=== PATIENT | male | born 1965 | race Caucasian/White ===

== ENCOUNTER 2018-07-30 08:58 | Inpatient (IN) | payer SELFPAY ==
[2018-07-30 12:09] VITALS: BMI 33.9
--- NOTE | 2018-07-30 12:59 | HP ---
COWS - Scale Resting Pulse: 0= SC 80 or Below Sweatin= Chills/Flushing Restless Observation: 1= Difficult to Sit Still Pupil Size: 1= Pupils >than Normal Bone or Joint Aches: 2= Severe Diffuse Aches Runny Nose/ Eye Tearin= Runny Nose/Eyes GI Upset > 30mins: 0= None Tremor Observation: 1= Tremor [place], Not Seen Yawning Observation: 2= >3x During Session Anxiety or Irritability: 2=Irritable/Anxious Goose Flesh Skin: 0=Smooth Skin COWS Score: 12 CIWA Score - Admission Criteria [facility]ASAS Guidelines: Admission for Medically Managed Detox: Requires at least one of the followin. CIWA greater than 12 2. Seizures within the past 24 hours 3. Delirium tremens within the past 24 hours 4. Hallucinations within the past 24 hours 5. Acute intervention needed for co occurring medical disorder 6. Acute intervention needed for co occurring psychiatric disorder 7. Severe withdrawal that cannot be handled at a lower level of care (continued vomiting, continued diarrhea, abnormal vital signs) requiring intravenous medication and/or fluids 8. Admission ROS [facility] - [facility] Chief Complaint: opioid withdrawal symptoms Allergies/Adverse Reactions: Allergies Allergy/AdvReac Type Severity Reaction Status Date / Time No Known Allergies Allergy Verified 07/30/18 12:01 History of Present Illness: 53 yo male with hx of heroin, cocaine and marijuana dependence is here seeking inpatient detox d/t withdrawal symptoms, reports first time seeking treatment. PMHX: denies Psych: denies Denies hx of seizures, blackouts or overdose Exam Limitations: No Limitations - Ebola screening Have you traveled outside of the country in the last 21 days: No (N) Have you had contact with anyone from an Ebola affected area: No Do you have a fever: No - Review of Systems Constitutional: Chills EENT: reports: No Symptoms Reported Respiratory: reports: No Symptoms reported Cardiac: reports: No Symptoms Reported GI: reports: Constipated (last BM 07/27/18), Poor Fluid Intake : reports: No Symptoms Reported Musculoskeletal: reports: Back Pain, Joint Pain Integumentary: reports: Pruritus Neuro: reports: Headache, Tingling (feet) Endocrine: reports: Increased Thirst Hematology: reports: No Symptoms Reported Psychiatric: reports: Orientated x3, Anxious Other Systems: Reviewed and Negative Patient History - Patient Medical History Hx Anemia: No Hx Asthma: No Hx Chronic Obstructive Pulmonary Disease (COPD): No Hx Cancer: No Hx Cardiac Disorders: No Hx Congestive Heart Failure: No Hx Hypertension: No Hx Hypercholesterolemia: No Hx Pacemaker: No HX Cerebrovascular Accident: No Hx Seizures: No Hx Dementia: No Hx Diabetes: No Hx Gastrointestinal Disorders: No Hx Liver Disease: No Hx Genitourinary Disorders: No Hx Sexually Transmitted Disorders: No Hx Renal Disease (ESRD): No Hx Thyroid Disease: No Hx Human Immunodeficiency Virus (HIV): No Hx Hepatitis C: No Hx Depression: No Hx Suicide Attempt: No Hx Bipolar Disorder: No Hx Schizophrenia: No - Patient Surgical History Past Surgical History: Yes Other Surgical History: right wrist fusion 2009 Anesthesia Reaction: No - PPD History Previous Implant?: No Documented Results: Negative w/o proof PPD to be Administered?: Yes - Smoking Cessation Smoking history: Current every day smoker Have you smoked in the past 12 months: Yes Aproximately how many cigarettes per day: 20 Hx Chewing Tobacco Use: No Initiated information on smoking cessation: Yes 'Breaking Loose' booklet given: 07/30/18 - Substance & Tx. History Hx Alcohol Use: No Hx Substance Use: Yes Substance Use Type: Cocaine, Heroin, Marijuana Hx Substance Use Treatment: No - Substances abused Heroin Substance route: Inhalation Frequency: Daily Amount used: 2 bundles/day Age of first use: 35 Date of last use: 07/30/18 Cocaine Substance route: Smoking Frequency: Daily Amount used: 1/2 Age of first use: 16 Date of last use: 07/29/18 Marijuana/Hashish Substance route: Smoking Frequency: 1-3 times last 30 days Amount used: 1-2 grams per month Age of first use: 12 Date of last use: 07/29/18 Family Disease History - Family Disease History Family History: Denies Admission Physical Exam BHS - Vital Signs Vital Signs: Vital Signs - 24 hr 07/30/18 07/30/18 12:03 12:53 Temperature 97.9 F 97.9 F Pulse Rate 73 73 Respiratory 18 18 Rate Blood Pressure 140/79 140/79 - Physical General Appearance: Yes: Appropriately Dressed, Obese, Anxious HEENTM: Yes: EOMI, Hearing grossly Normal, Normal ENT Inspection, Normocephalic , Normal Voice, FOREIGN, Pharynx Normal, Tm's normal, Other (rhinorrhea) Respiratory: Yes: Chest Non-Tender, Lungs Clear, No Respiratory Distress, No Accessory Muscle Use, Rhonchi (left lower lobe) Neck: Yes: Within Normal Limits Breast: Yes: Breast Exam Deferred Cardiology: Yes: Regular Rhythm, Regular Rate Abdominal: Yes: Normal Bowel Sounds, Non Tender, Flat Genitourinary: Yes: Within Normal Limits Back: Yes: Normal Inspection Musculoskeletal: Yes: full range of Motion, Gait Steady, Pelvis Stable, Back pain Extremities: Yes: Normal Capillary Refill, Normal Inspection, Normal Range of Motion, Non-Tender Neurological: Yes: aircraft skin burnisher II-XII NML intact, Fully Oriented, Alert, Motor Strength 5/5, Depressed Affect Integumentary: Yes: Normal Color, Warm, Diaphoresis Lymphatic: Yes: Within Normal Limits - Diagnostic (1) Opioid dependence with withdrawal Current Visit: Yes Status: Acute (2) Nicotine dependence Current Visit: Yes Status: Acute (3) Cocaine dependence Current Visit: Yes Status: Acute Qualifiers: Substance use status: uncomplicated Qualified Code(s): F14.20 - Cocaine dependence, uncomplicated (4) Marijuana abuse Current Visit: Yes Status: Acute (5) Obese Current Visit: Yes Status: Chronic Cleared for Admission [facility] - Detox or Rehab [facility] Level of Care: Medically Managed Detox Regimen/Protocol: Methadone Breathalyzer - Breathalyzer Breathalyzer: 0 Urine Drug Screen - Test Device Lot number: [id number] Expiration date: 04/15/20 - Control Is test valid?: Yes - Results Drug screen NEGATIVE: No Urine drug screen results: THC-Marijuana, NABEEL-Cocaine, FEN-Fentanyl, MOP-Opiates Inpatient Rehab Admission - Rehab Decision to Admit Inpatient rehab admission?: No
[2018-07-30] MEDS ORDERED: METHOCARBAMOL 500 MG TABLET PO PRN (13:11)
[2018-07-30] MEDS ORDERED: MAG HYDROX/AL HYDROX/SIMETH 30 ML UNIT-DOSE CUP PO PRN (13:11)
[2018-07-30] MEDS ORDERED: MAGNESIUM HYDROX 2400MG/30ML ORAL SUSPENSION 30 ML CUP PO PRN (13:11)
[2018-07-30] MEDS ORDERED: IBUPROFEN 400 MG TABLET (FP) PO PRN (13:11)
[2018-07-30] MEDS ORDERED: MENTHOL/PHENOL 1 EACH UD MM PRN (13:11)
[2018-07-30] MEDS ORDERED: NICOTINE POLACRILEX 2 MG GUM BUC PRN (13:11)
[2018-07-30] MEDS ORDERED: BISMUTH SUBSALICYLATE 262 MG/15 ML BTL PO PRN (13:11)
[2018-07-30] MEDS ORDERED: ACETAMINOPHEN 325 MG TABLET (FP) PO PRN ×2 (13:11)
[2018-07-30] MEDS ORDERED: MAGNESIUM CITRATE 300 ML BOTTLE PO PRN (13:11)
[2018-07-30] MEDS ORDERED: MELATONIN 5 MG TABLETS PO PRN (13:11)
[2018-07-30] MEDS ORDERED: cloNIDine HCL 0.1 MG TABLET PO PRN (13:30)
[2018-07-30] MEDS ORDERED: diazePAM 5 MG TABLET PO PRN (13:30)
[2018-07-30 16:43] LABS: ALBUMIN 3.7 g/dl (3.4-5.0); BILIRUBIN,TOTAL 0.2 mg/dL (0.2-1); CALCIUM 8.7 mg/dL (8.5-10.1); CREATININE 0.9 mg/dL (0.55-1.3); POTASSIUM 4.1 mmol/L (3.5-5.1)
[2018-07-30 17:06] LABS: URINE APPEARANCE CLEAR; URINE BILIRUBIN NEGATIVE (NEGATIVE); URINE COLOR YELLOW; URINE GLUCOSE (UA) NEGATIVE (NEGATIVE); URINE KETONE NEGATIVE (NEGATIVE); URINE LEUK ESTERASE NEGATIVE (NEGATIVE); URINE NITRITE NEGATIVE (NEGATIVE); URINE PROTEIN NEGATIVE (NEGATIVE)
[2018-07-30 18:46] LABS: RBC 4.69 M/mm3 (4.00-5.60); WHITE BLOOD COUNT 7.8 K/mm3 (4.0-10.0)
[2018-07-30 18:47] LABS: HEMATOCRIT 42.3 % (35.4-49); HEMOGLOBIN 13.9 GM/dL (11.7-16.9); MCH 29.7 pg (25.7-33.7); MCHC 32.9 g/dl (32.0-35.9); MEAN CELL VOLUME 90.3 fl (80-96); MEAN PLT VOLUME 8.9 fl (7.5-11.1); PLATELET COUNT 253 K/MM3 (134-434); RDW 13.4 % (11.9-15.9)
[2018-07-30] MEDS: THIAMINE HCL 100 MG TABLET (FP) PO SCH (22:58)
[2018-07-30] MEDS ORDERED: METHADONE HCL 10 MG TABLET (FOR DETOX USE ONLY) PO ONE (23:00)
[2018-07-31] MEDS ORDERED: METHADONE HCL 10 MG TABLET (FOR DETOX USE ONLY) PO ONE (10:00)
[2018-07-31] MEDS: NICOTINE 14 MG/24 HOURS TOPICAL PATCH TD SCH (10:37)
[2018-07-31] MEDS: PRENATAL VITAMINS W/ FOLIC ACID TABLET (FP) PO SCH (10:37)
--- NOTE | 2018-07-31 12:26 | EKG ---
Test Reason : Blood Pressure : / mmHG Vent. Rate : 064 BPM Atrial Rate : 064 BPM P-R Int : 170 ms QRS Dur : 094 ms QT Int : 396 ms P-R-T Axes : 062 046 040 degrees QTc Int : 408 ms NORMAL SINUS RHYTHM NORMAL ECG NO PREVIOUS ECGS AVAILABLE Confirmed by MD SHAKIRA, JUNIE ([id number]) on 07/31/2018 12:25:34 PM Referred By: Confirmed By:JUNIE ROSENBERG MD
--- NOTE | 2018-07-31 17:04 | PN ---
BHS COWS - Scale Resting Pulse: 1= IN 81-100 Sweatin=Flushed/Facial Moisture Restless Observation: 0= Sits Still Pupil Size: 0= Normal to Room Light Bone or Joint Aches: 1= Mild Discomfort Runny Nose/ Eye Tearin= Nasal Congestion GI Upset > 30mins: 0= None Tremor Observation of Outstretched Hands: 2= Slight Tremor Visible Yawning Observation: 1= 1-2x During Session Anxiety or Irritability: 0= None Goose Flesh Skin: 0=Smooth Skin COWS Score: 8 BHS Progress Note (SOAP) Subjective: shakes sleep disturbance Objective: 07/31/18 17:02 In bed A & O x 3 Not in acute distress Vital Signs Temperature 98.1 F 07/31/18 10:00 Pulse Rate 94 H 07/31/18 10:00 Respiratory Rate 18 07/31/18 10:00 Blood Pressure 149/79 07/31/18 10:00 O2 Sat by Pulse Oximetry (%) Laboratory Last Values WBC 7.8 K/mm3 (4.0-10.0) 07/30/18 13:15 RBC 4.69 M/mm3 (4.00-5.60) 07/30/18 13:15 Hgb 13.9 GM/dL (11.7-16.9) 07/30/18 13:15 Hct 42.3 % (35.4-49) 07/30/18 13:15 MCV 90.3 fl (80-96) 07/30/18 13:15 MCH 29.7 pg (25.7-33.7) 07/30/18 13:15 MCHC 32.9 g/dl (32.0-35.9) 07/30/18 13:15 RDW 13.4 % (11.9-15.9) 07/30/18 13:15 Plt Count 253 K/MM3 (134-434) 07/30/18 13:15 MPV 8.9 fl (7.5-11.1) 07/30/18 13:15 Sodium 141 mmol/L (136-145) 07/30/18 13:15 Potassium 4.1 mmol/L (3.5-5.1) 07/30/18 13:15 Chloride 103 mmol/L (98-107) 07/30/18 13:15 Carbon Dioxide 33 mmol/L (21-32) H 07/30/18 13:15 Anion Gap 5 MMOL/L (8-16) L 07/30/18 13:15 BUN 13.0 mg/dL (7-18) 07/30/18 13:15 Creatinine 0.9 mg/dL (0.55-1.3) 07/30/18 13:15 Est GFR (CKD-EPI)AfAm 112.62 07/30/18 13:15 Est GFR (CKD-EPI)NonAf 97.17 07/30/18 13:15 Random Glucose 74 mg/dL (74-106) 07/30/18 13:15 Calcium 8.7 mg/dL (8.5-10.1) 07/30/18 13:15 Total Bilirubin 0.2 mg/dL (0.2-1) 07/30/18 13:15 AST 12 U/L (15-37) L 07/30/18 13:15 ALT 25 U/L (13-61) 07/30/18 13:15 Alkaline Phosphatase 96 U/L (45-117) 07/30/18 13:15 Total Protein 7.0 g/dl (6.4-8.2) 07/30/18 13:15 Albumin 3.7 g/dl (3.4-5.0) 07/30/18 13:15 Urine Color Yellow 07/30/18 14:40 Urine Appearance Clear 07/30/18 14:40 Urine pH 6.0 (5.0-8.0) 07/30/18 14:40 Ur Specific [place] 1.020 (1.010-1.035) 07/30/18 14:40 Urine Protein Negative (NEGATIVE) 07/30/18 14:40 Urine Glucose (UA) Negative (NEGATIVE) 07/30/18 14:40 Urine Ketones Negative (NEGATIVE) 07/30/18 14:40 Urine Blood Negative (NEGATIVE) 07/30/18 14:40 Urine Nitrite Negative (NEGATIVE) 07/30/18 14:40 Urine Bilirubin Negative (NEGATIVE) 07/30/18 14:40 Urine Urobilinogen 1.0 mg/dL (0.2-1.0) 07/30/18 14:40 Ur Leukocyte Esterase Negative (NEGATIVE) 07/30/18 14:40 RPR Titer Nonreactive (NONREACTIVE) 07/31/18 08:00 noted Assessment: 07/31/18 17:03 withdrawal sx Plan: continue detox
[2018-07-31] MEDS: THIAMINE HCL 100 MG TABLET (FP) PO SCH (22:33)
[2018-08-01] MEDS ORDERED: METHADONE HCL 10 MG TABLET (FOR DETOX USE ONLY) PO ONE (10:00)
[2018-08-01] MEDS: PRENATAL VITAMINS W/ FOLIC ACID TABLET (FP) PO SCH (10:06)
[2018-08-01] MEDS: NICOTINE 14 MG/24 HOURS TOPICAL PATCH TD SCH (10:07)
--- NOTE | 2018-08-01 12:30 | PN ---
BHS COWS - Scale Resting Pulse: 0= MD 80 or Below Sweatin=Flushed/Facial Moisture Restless Observation: 1= Difficult to Sit Still Pupil Size: 0= Normal to Room Light Bone or Joint Aches: 2= Severe Diffuse Aches Runny Nose/ Eye Tearin= None GI Upset > 30mins: 0= None Tremor Observation of Outstretched Hands: 1= Tremor [place], Not Seen Yawning Observation: 0= None Anxiety or Irritability: 1=Feels Anxious/Irritable Goose Flesh Skin: 0=Smooth Skin COWS Score: 7 BHS Progress Note (SOAP) Subjective: sweats shakes interrupted sleep Objective: 08/01/18 12:28 Vital Signs Temperature 97.7 F 08/01/18 09:19 Pulse Rate 78 08/01/18 09:19 Respiratory Rate 18 08/01/18 09:19 Blood Pressure 149/87 08/01/18 09:19 O2 Sat by Pulse Oximetry (%) Laboratory Tests 07/30/18 07/30/18 07/30/18 13:15 13:15 14:40 WBC 7.8 RBC 4.69 Hgb 13.9 Hct 42.3 MCV 90.3 MCH 29.7 MCHC 32.9 RDW 13.4 Plt Count 253 MPV 8.9 Sodium 141 Potassium 4.1 Chloride 103 Carbon Dioxide 33 H Anion Gap 5 L BUN 13.0 Creatinine 0.9 Est GFR (CKD-EPI)AfAm 112.62 Est GFR (CKD-EPI)NonAf 97.17 Random Glucose 74 Calcium 8.7 Total Bilirubin 0.2 AST 12 L ALT 25 Alkaline Phosphatase 96 Total Protein 7.0 Albumin 3.7 Urine Color Yellow Urine Appearance Clear Urine pH 6.0 Ur Specific [place] 1.020 Urine Protein Negative Urine Glucose (UA) Negative Urine Ketones Negative Urine Blood Negative Urine Nitrite Negative Urine Bilirubin Negative Urine Urobilinogen 1.0 Ur Leukocyte Esterase Negative RPR Titer 07/31/18 08:00 WBC RBC Hgb Hct MCV MCH MCHC RDW Plt Count MPV Sodium Potassium Chloride Carbon Dioxide Anion Gap BUN Creatinine Est GFR (CKD-EPI)AfAm Est GFR (CKD-EPI)NonAf Random Glucose Calcium Total Bilirubin AST ALT Alkaline Phosphatase Total Protein Albumin Urine Color Urine Appearance Urine pH Ur Specific [place] Urine Protein Urine Glucose (UA) Urine Ketones Urine Blood Urine Nitrite Urine Bilirubin Urine Urobilinogen Ur Leukocyte Esterase RPR Titer Nonreactive aaox3 ambulating no acute distress Assessment: 08/01/18 12:29 withdrawal sx Plan: continue detox increase fluids
[2018-08-01] MEDS: THIAMINE HCL 100 MG TABLET (FP) PO SCH (22:20)
[2018-08-02 09:11] VITALS: BP 148/80; PULSE 77; TEMP 97.5
[2018-08-02] MEDS ORDERED: METHADONE HCL 10 MG TABLET (FOR DETOX USE ONLY) PO ONE (10:00)
--- NOTE | 2018-08-02 10:21 | PN ---
[facility] Progress Note Note: pt was admitted in withdrawal. CO WITHDRAWAL SX AND AGGRESSIVE SYMPTOMATIC MANAGEMENT ATTEMPTED, HOWEVER, PT IN SPITE OF EXTENSIVE MOTIVATIONAL COUNSELING OF OVERDOSE, , LOSS OF TOLERANCE AND RELAPSE, PT CHOSE TO SIGN OUT AMA.
--- NOTE | 2018-08-02 10:22 | DS ---
[facility] Detox Discharge Summary Admission Date: 07/30/18 - History Present History: Cocaine Dependence, Opioid Dependence - Physical Exam Results Vital Signs: Vital Signs Temperature 97.5 F L 08/02/18 09:11 Pulse Rate 77 08/02/18 09:11 Respiratory Rate 18 08/02/18 09:11 Blood Pressure 148/80 08/02/18 09:11 O2 Sat by Pulse Oximetry (%) - Treatment Hospital Course: Discharged Condition Good - Medication Discharge Medications: Ambulatory Orders NK [No Known Home Medication] 07/30/18 - Diagnosis (1) Cocaine dependence Current Visit: Yes Status: Chronic Qualifiers: Substance use status: uncomplicated Qualified Code(s): F14.20 - Cocaine dependence, uncomplicated (2) Marijuana abuse Current Visit: Yes Status: Acute (3) Nicotine dependence Current Visit: Yes Status: Chronic Qualifiers: Nicotine product type: cigarettes Substance use status: uncomplicated Qualified Code(s): F17.210 - Nicotine dependence, cigarettes, uncomplicated (4) Opioid dependence with withdrawal Current Visit: Yes Status: Chronic (5) Obese Current Visit: Yes Status: Chronic Qualifiers: Obesity type: unspecified obesity type Obesity classification: unspecified obesity classification - AMA Did Patient Leave Against Medical Advice: Yes (REFUSED AFTERCARE)
[2018-08-03] MEDS ORDERED: METHADONE HCL 5 MG TABLET (FOR DETOX USE ONLY) PO ONE (06:00)
== END 2018-08-02 10:49 | disposition left against medical advice (07) | DRG 770 ==
LOC: YASAS 08:58 → Y6N 14:04
PROVIDERS: ADMIT Surgery; ATTEND Surgery
PROC: HZ2ZZZZ Detoxification Services for Substance Abuse Treatment (ICD-10-PCS; principal; 2018-07-30)
DX: F11.23 Opioid dependence with withdrawal (principal); F14.20 Cocaine dependence, uncomplicated; F12.10 Cannabis abuse, uncomplicated; F17.210 Nicotine dependence, cigarettes, uncomplicated; E66.9 Obesity, unspecified; Z68.33 Body mass index [BMI] 33.0-33.9, adult
CPT/HCPCS: 36415; 80053; 81003; 85027; 86593; 93005; 93010; J0735